=== PATIENT | female | born 1965 | race Caucasian/White ===

== ENCOUNTER 2025-02-01 10:51 | Emergency (ER) | payer MEDICAID, OTHER ==
[~2025-02-01] VITALS: Ht 165.1 cm; Wt 75.3 kg
--- NOTE | 2025-02-01 10:59 | NUR ---
"Walking the dog last night trip/fall extended arm.Now pain shoulder L arm L Thumb and hip"
--- NOTE | 2025-02-01 11:44 | NUR ---
XRAY AT BEDSIDE
[2025-02-01] MEDS ORDERED: IBUPROFEN 600 MG TABLET ONE (12:34)
[2025-02-01] MEDS ORDERED: IBUP-1955 PO (12:34)
[2025-02-01] MEDS: IBUPROFEN 600 MG TABLET PO ONE (12:39)
--- NOTE | 2025-02-01 13:00 | NUR ---
Patient discharged to home in stable condition. Written and verbal after care instructions given. Patient verbalizes understanding of instruction.
[2025-02-01 13:01] VITALS: BP 135/80; TEMP 98.6; O2SAT 97
== END 2025-02-01 13:02 | disposition home or self-care (01) ==
LOC: ER 11:24
DX: S46.812A Strain of other muscles, fascia and tendons at shoulder and upper arm level, left arm, initial encounter (principal); S63.92XA Sprain of unspecified part of left wrist and hand, initial encounter; S50.02XA Contusion of left elbow, initial encounter; S76.012A Strain of muscle, fascia and tendon of left hip, initial encounter; Z91.048 Other nonmedicinal substance allergy status; W01.0XXA Fall on same level from slipping, tripping and stumbling without subsequent striking against object, initial encounter; Y93.K1 Activity, walking an animal; Y92.89 Other specified places as the place of occurrence of the external cause; Y99.8 Other external cause status
CPT/HCPCS: 73030-TC; 73090-TC; 73120-TC; 73502